=== PATIENT | female | born 1990 | race African-American/Black ===

== ENCOUNTER 2018-06-05 18:26 | Emergency (ER) | payer SELFPAY ==
[2018-06-05 18:27] VITALS: BP 163/118; PULSE 95; RESP 15; TEMP 36.8; O2SAT 99; BMI 27.5
--- NOTE | 2018-06-05 20:11 | RAD_ITS ---
STUDY: X-RAY CHEST REASON FOR EXAM: Female, 28 years old. Cough with shortness of breath TECHNIQUE: Single AP portable view of the chest. COMPARISON: None. FINDINGS: The lungs are clear and expanded. There is no demonstrated pleural abnormality. Normal size heart. Normal mediastinum and ramirez. Normal visualized pulmonary arteries. Normal visualized aortic arch and descending thoracic aorta. Normal visualized thoracic spine. Normal visualized ribs, clavicles, and shoulders. There is no demonstrated abnormality of the visualized soft tissue structures of the upper abdomen. RAD/Chest 1 View (Portable) IMPRESSION: Normal x-ray examination of the chest. Electronically Signed: Saad Connell MD at 20:49 EDT , Service support ,
--- NOTE | 2018-06-05 20:19 | ED.VISSUMM ---
- ER Visit Summary Date of Service: 06/05/18 Chief Complaint: Shortness of breath History of Present Illness: The patient is a 28 F presenting with shortness of breath, cough. She states this started last week. On Tuesday and she had fever and body aches. She has multiple sick contacts. She has had a persistent cough. She is short of breath when she starts to cough heavily. She has chest pain only when she coughs. The fever has improved. She denies other complaints. Physical Examination: Vitals are stable. Blood pressure 163/118. patient is afebrile. Alert no acute distress. HEENT exam is unremarkable. Neck is supple. Lungs are clear and equal bilaterally. Heart is regular rate and rhythm. Abdomen is soft nontender nondistended. Extremities are unremarkable. Skin is warm and dry. No focal neurologic deficit. Remainder of exam is unremarkable. Emergency Department Course and Treatment: CBC, chemistries unremarkable other than potassium 3.2. She was given potassium oral replacement. D-dimer negative. HCG negative. Influenza negative. Chest x-ray shows no acute process. On reevaluation, patient is resting comfortably. Repeat blood pressure 151/102. Patient states she was previously on blood pressure medication but lost weight and was taken off. She is advised to follow-up with her primary care physician for blood pressure recheck. On reevaluation her lungs are clear to auscultation bilaterally. She is given prescription for Tessalon Perles. Advised to follow-up with primary care physician. Advised return to ED if worsening complaints. Disposition: Discharge home Impression: Flulike illness This note was generated with [employer] dictation software. It may contain incorrect words, spelling, and punctuation that were not noted in review of the chart prior to signing ED Disposition - Plan for ED Patient: Instructions: ED Upper Resp Infec No Abx Tx Prescriptions: Benzonatate [Tessalon Perle] 200 mg PO TID PRN PRN #20 capsule PRN Reason: Cough [facility]errals: [facility],Out [facility] [NON-STAFF] -
[2018-06-05 20:47] LABS: Absolute Neutrophil Count 3.5 X10^3/uL (2.0-7.7); Basophil# 0.01 X10^3/uL; Basophil% 0.2 % (0-1); Eosinophil# 0.01 X10^3/uL; Eosinophils% 0.2 % (0-5); Hematocrit 38.5 % (37-47); Hemoglobin 12.4 g/dl (12.0-15.0); Lymphocyte % 27.2 % (19-41); Mean Corp Hgb Conc 32.2 g/gl (32-36); Mean Corpuscular Hgb 29.5 pg (27.0-32.0); Mean Corpuscular Volume 91.4 fL (81-99); Mean Platelet Vol. 10.3 fl (6.2-12.0); Monocyte# 0.49 X10^3/uL; Monocyte% 8.9 % (0-10); Neutrophil % 63.5 % (47-70); Platelet Count 190 K/mm3 (150-450); RBC Distribution Width CV 12.4 % (11.6-14.6); RBC Distribution Width SD 41.5 fl (35.1-43.9); Red Blood Count 4.21 M/mm3 (4.2-5.4); White Blood Count 5.5 K/mm3 (4.4-11.0)
[2018-06-05 20:48] LABS: POSITIVE COUNT NO; POSITIVE DIFFERENTIAL NO; POSITIVE MORPHOLOGY NO
[2018-06-05 21:00] LABS: D-Dimer Quantitative (DVT/PE) 0.32 FEU/ug/m (0.27-0.49)
[2018-06-05 21:01] LABS: Anion Gap 11 (5-15); BUN 9 mg/dL (7-18); BUN/Creat Ratio 12.7 RATIO (10-20); Calcium,Total 8.4 mg/dL (8.5-10.1); Chloride 107 mmol/L (98-107); Creatinine, Serum 0.71 mg/dL (0.55-1.02); EST Glomerular Filtration Rate 104 mL/min (>60); Est Glom Filt Rate - Afr Amer 126 mL/min (>60); Estimated Creatinine Clearance 136.13 ml/min; Glucose 76 mg/dL (74-106); Potassium 3.2 mmol/L (3.5-5.1); Sodium Level 143 mmol/L (136-145)
[2018-06-05 21:11] LABS: Pregnancy, Serum, hCG Quali. NEGATIVE Negative (0-9 Nonpreg)
--- NOTE | 2018-06-05 22:26 | ED.DEP ---
ED Disposition - Plan for ED Patient: Instructions: ED Upper Resp Infec No Abx Tx Prescriptions: Benzonatate [Tessalon Perle] 200 mg PO TID PRN PRN #20 capsule PRN Reason: Cough Referrals: [facility] [NON-STAFF] -
[2018-06-05 22:37] VITALS: BP 154/82; RESP 16; O2SAT 97
== END 2018-06-05 22:44 | disposition home or self-care (01) ==
LOC: ED 20:40
PROVIDERS: Emergency Provider Emergency Medicine; Family Provider Nurse Practitioner Family; PCP Nurse Practitioner Family
DX: R05 Cough (principal); R06.02 Shortness of breath
CPT/HCPCS: 71045; 80048; 84703; 85025; 85379; 87804; 99283

== ENCOUNTER 2021-08-19 13:44 | Emergency (ER) | payer MEDICAID, SELFPAY ==
[2021-08-19 13:45] VITALS: BP 217/132; PULSE 99; RESP 14; TEMP 36.7; O2SAT 99; BMI 29.6
--- NOTE | 2021-08-19 14:10 | EDS_ITS ---
HPI History of Present Illness Chief Complaint: Mental Health Informant: patient Narrative Narrative: Patient states she is concerned that there are some worms. She has a spot on her left leg and behind her ear. She has been doing more itching. She thinks this was been going on for about 3 months. She has never had this before. She does have a exposure to somebody who was overseas in the but does not know if that person has any symptoms. She has not been overseas or camping. No anal itching. No fevers chills. Patient has seen her primary physician and dermatology. However she states that neither one of them examined the skin. She has not been treated. Only new medicine is Lexapro but it has been present for quite some time. And her symptoms are only a few months old. No fevers chills. She does have a history of psychiatric disease but does not feel this is psychiatrically based. We did discuss that this is certainly possible. PFSH PFSH Home Medications benzonatate 200 mg PO TID PRN PRN #20 capsule 06/05/18 [Rx Last Taken Unknown] mebendazole 200 mg PO .once #1 tab 08/19/21 [Rx Last Taken Unknown] Allergy/AdvReac Type Severity Reaction Status Date / Time oxycodone HCl [From Percocet] Allergy Shortness Verified 08/19/21 13:45 of breath naproxen AdvReac Upset Verified 08/19/21 13:45 Stomach Social History Smoking Status: Former smoker ROS ROS ED Constitutional Constitutional ED: Denies chills or fever(s) Eyes Eyes: Denies change in vision ENT ENT ED: Denies rhinorrhea or sore throat Cardiovascular Cardiovascular: Denies chest pain Respiratory/Chest Respiratory/Chest: Denies cough or dyspnea Gastrointestinal Gastrointestinal: Reports other; Denies diarrhea, nausea or vomiting Genitourinary Genitourinary ED: Denies dysuria Musculoskeletal Musculoskeletal: Denies arthralgias or myalgias Integumentary Reports rash Neurologic Neurologic: Denies headache(s) Psychiatric Psychiatric: Reports anxiety and depression; Denies suicidal thoughts Endocrine Endocrinology: Denies polydipsia or polyuria Allergic/Immunologic Allergic/Immunologic ED: Denies urticaria EXAM Physical Exam Const Vital Signs: 05/25/22 13:45 Temperature 98.1 F Temperature Source Temporal Pulse Rate 99 Respiratory Rate 14 Blood Pressure 217/132 H Blood Pressure Mean 160 Pulse Ox 99 Oxygen Delivery Method Room Air Positive well nourished and well developed General Appearance ED: well developed and NAD; Negative for cyanotic or diaphoretic HEENT Reports moist mucous membranes HEENT Narrative: No oral lesions. Patient does have some excoriations on the face mostly near the left eyebrow and behind the left ear. I looked at these with light and magnification and do not see any worms. They do not look like cutaneous larva migrans. Eyes PERRL Neck no lymphadenopathy Resp normal respiratory effort and clear to auscultation bilaterally Cardio regular rate and regular rhythm GI normal to inspection, nondistended, normoactive bowel sounds Back/Spine no CVA tenderness Neuro oriented x3 Sensorium / Orientation: alert Psych Psych Narrative: Patient does seem a bit anxious. But she is very frustrated. No flight of ideas. Not suicidal or homicidal. Skin Skin Narrative: Ration face/ear as above. There is also a lesion about 3 or 4 mm around that is excoriated on the left lower medial leg. Again, no sign of cutaneous larva migrans or infestation that I can see. Patient also brought in a bag with some material in it. I cannot identify what this is but do not see any worms. MDM MDM MDM Narrative Medical decision making narrative: Patient has potential exposure. She has only 2 areas involved. I do not see signs of infestation. I explained that this very well may be psychiatric illness. I will give her a dose of mebendazole as a one-time trial to see if this helps. She understands that follow-up is important. She should follow-up with dermatology and/or psychiatry. We are happy to help in the emergency department but as this is an ongoing issue with months of symptoms of subspecialty care is likely ideal. Discharge Plan Triage Chief Complaint: Mental Health ED Provider: Mihir Collado Dx/Rx/DC Orders Clinical Impression: Worm infestation Prescriptions: New mebendazole 100 mg tablet,chewable 200 mg PO .once Qty: 1 RF: 0 No Action benzonatate 100 MG capsule 200 mg PO TID PRN PRN (Reason: Cough) Qty: 20 RF: 0 Primary Care Provider: Luz Maria iWck NP Referrals: Luz Maria Wick NP, [employer] [Primary Care Provider] - 10-14 Days if not better Activity Restrictions/Additional Instructions: Follow-up with your doctor if not better in about 2 weeks. Avoid scratching and itching is much as possible. Disposition Disposition: Home, Self Care
[2021-08-19 14:44] VITALS: BP 174/116
[2021-08-19 14:52] VITALS: BP 174/116
[2021-08-19 15:07] VITALS: BP 179/116
== END 2021-08-19 15:08 | disposition home or self-care (01) ==
PROVIDERS: Emergency Provider Emergency Medicine; PCP Nurse Practitioner Family; Visit Provider Emergency Medicine
DX: Z20.7 Contact with and (suspected) exposure to pediculosis, acariasis and other infestations (principal); F99 Mental disorder, not otherwise specified; Z87.891 Personal history of nicotine dependence; S00.212A Abrasion of left eyelid and periocular area, initial encounter; S00.412A Abrasion of left ear, initial encounter; S80.812A Abrasion, left lower leg, initial encounter; X58.XXXA Exposure to other specified factors, initial encounter
CPT/HCPCS: 99282